=== PATIENT | female | born 2000 | race Caucasian/White ===

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

== ENCOUNTER → 2020-03-19 | Outpatient (CLI) | payer OTHER | LOC: YCFC.O 10:20 | PROVIDERS: ATTEND Family Medicine | DX: R07.0 Pain in throat (principal) ==